=== PATIENT | male | born 1965 | race Caucasian/White ===

== ENCOUNTER 2019-09-10 14:17 | Day surgery (SDC) | payer BC, SELFPAY ==
[2019-09-10] VITALS (10 sets, daily range): BP systolic 103–137; BP diastolic 70–87; PULSE 50–82; RESP 16–19; TEMP 36.1–36.7; O2SAT 95–100; BMI 25.0
--- NOTE | 2019-09-10 14:28 | XRR_ITS ---
PROCEDURE INFORMATION: Exam: XR Chest, 1 View Exam date and time: 09/10/2019 2:29 PM Age: 54 years old Clinical indication: Mass, lump, or swelling in the chest; Patient HX: C/O possible piece of food stuck in throat; Additional info: Fb throat TECHNIQUE: Imaging protocol: XR of the chest Views: Frontal portable upright view of the chest. COMPARISON: No relevant prior studies available. FINDINGS: Lungs: The lungs are clear bilaterally. The pulmonary vasculature is normal. Pleural space: No pleural effusion. No pneumothorax. Heart/Mediastinum: The heart is normal in size and contour. No chest radiographic evidence of esophageal obstruction. Bones/joints: No acute chest wall abnormality identified. No radiopaque or radiolucent foreign body identified. Soft tissues: XR/XR chest 1V portable [id number] IMPRESSION: 1. No acute cardiopulmonary abnormality identified. 2. No radiopaque or radiolucent foreign body identified. 3. No chest radiographic evidence of esophageal obstruction.
--- NOTE | 2019-09-10 14:35 | ED_ITS ---
HPI - Abdominal Pain General: Chief Complaint: Airway/Esophagus Foreign Body Stated Complaint: fb in throat Time Seen by Provider: 09/10/19 14:25 Source: patient and family Mode of arrival: ambulatory Limitations: no limitations History of Present Illness: HPI narrative: Mr. Yuan is a nice 54-year-old male who comes in complaining of having a piece of pork stuck in his throat. Patient states that he has had this happen to him before and they have had to go in with a scope to push the piece of food on through. He gets sick and throws up after so much of his secretions buildup in his esophagus. He is unaware of any webs or other cause for his difficulty swallowing. Patient states his symptoms have been like this for the past 2 hours. Associated Symptoms: Denies chills, coffee ground emesis, constipation, GI cramping, diarrhea, dysuria, fever(s), heartburn, hematochezia, hematuria, hematemesis, melena, nausea, syncope and vomiting Review of Systems Const: Denies: fever(s), chills, body aches, fatigue, malaise or diaphoresis Eyes: Denies: change in vision, blurry vision, blind spots, photophobia, eye discharge or eye redness ENMT: Denies: throat pain, odynophagia, hoarseness, swelling of lips/tongue, oral sores, ear or mastoid pain, ear discharge, change in hearing or nasal discharge Card: Reports: chest pain; Denies: palpitations, irregular heart rhythm, edema, lightheadedness, syncope, pre-syncope, dyspnea on exertion or orthopnea Resp: Denies: dyspnea, productive cough, non-productive cough, wheezing, hemoptysis or chest congestion GI: Denies: abdominal pain, nausea, vomiting, hematemesis, coffee ground emesis, heartburn, diarrhea, constipation, GI cramping, hematochezia or melena : Denies: flank pain, dysuria, urinary frequency, urinary urgency or hematuria Musc: Denies: neck pain, back pain, extremity pain, extremity swelling, joint pain, joint swelling, joint redness, joint warmth or joint stiffness Skin/Breast: Denies: rash, pruritus, erythema, skin tenderness or jaundice Neuro: Denies: headache(s), numbness in extremities, weakness in extremities, sensory changes, lack of coordination, difficulty walking, dizziness, vertigo, confusion, Slurred speech present or seizure-like activity Cooper/Lymph: Denies: easy bruising, easy bleeding, petechiae, purpura or enlarged lymph nodes All/Imm: Denies: urticaria, throat swelling, tongue swelling, facial swelling or acute wheezing Physical Exam Const: COMMON NORMALS: no acute distress, patient oriented x3, no limitations, healthy appearing and well nourished GENERAL APPEARANCE: cooperative, well kempt and well developed HENMT: COMMON NORMALS: normocephalic, atraumatic, external ears normal, EAC's normal and Normal external nose present HEAD & SCALP: normal to inspection, normocephalic and atraumatic FACE & SINUS: normal facial exam and face symmetric NOSE: Normal external nose present and Normal nares present EXTERNAL EAR: Yes external ears normal EXTERNAL AUDITORY CANAL: EAC's normal MOUTH: Normal oral and palatal mucosa present, lip normal and tongue normal Eye: COMMON NORMALS: Equal, round and reactive pupils present and conjunctivae normal GENERAL EYE: appearance normal, both eyes and all related structures ALIGNMENT: Yes alignment normal PERIORBITAL: periorbital findings normal EYELID: eyelids normal CONJUNCTIVA: Yes conjunctivae normal SCLERA: sclerae normal PUPIL: Yes Equal, round and reactive pupils present Neck/C-Spine: COMMON NORMALS: full ROM, no lymphadenopathy, supple, no meningeal signs and no JVD GENERAL: Yes normal visual inspection and Yes trachea midline Chest: COMMONS NORMALS: normal inspection of the chest and normal palpation of entire chest wall Resp: COMMON NORMALS: normal respiratory effort, No retractions and No use of accessory muscles EFFORT & INSPECTION: Yes able to speak in complete sentences and Yes symmetric chest movement AUSCULTATION: no crackles, no rales, no rhonchi and no wheezes Cardio: COMMON NORMALS: no JVD, regular rate, regular rhythm, S1 normal heart sound present and S2 normal heart sound present RATE: regular rate RHYTHM: regular rhythm HEART SOUNDS: S1 normal heart sound present, S2 normal heart sound present, no click, no gallops, no murmurs, no rubs and abnormal split S2 GI: COMMON NORMALS: Soft to palpation and No hepatosplenomegaly present PALPATION: Yes Soft to palpation, No Tenderness to palpation present (GI), No Guarding due to palpation present (GI), No Rigid due to palpation, Yes No hepatosplenomegaly present, No Hernia present, No Palpable mass present and No Pulsatile mass present : COMMON NORMALS: Yes no CVA tenderness BLADDER/KIDNEY EXAM: Yes no CVA tenderness Back/Pelvis: COMMON NORMALS: no CVA tenderness, thoracic and lumbar spine normal to inspection, no thoracic nor lumbar tenderness and thoraco-lumbar ROM normal Extremity: COMMON NORMALS: normal to inspection, full ROM, capillary refill normal, no joint enlargement, no clubbing, cyanosis or edema and no calf tenderness Neuro: COMMON NORMALS: patient oriented x3, CN's II-XII intact bilaterally, moves all extremities, no focal motor deficits and no sensory deficits noted MENINGEAL SIGNS: Yes no meningeal signs SPEECH: speech normal Psych: COMMON NORMALS: mental status grossly normal, Normal thought process present, cooperative, normal affect, speech normal and activity/motor behavior normal APPEARANCE: Yes well kempt SPEECH: Yes normal speech THOUGHT PROCESS: Normal thought process present Skin: COMMON NORMALS: no rashes or lesions noted, turgor normal, no jaundice, no petechiae and no mottling GENERAL SKIN EXAM: no rashes or lesions noted and turgor normal Procedures EJ/Peripheral Line Arm R: Time Out Performed: Yes Skin Cleansed in Sterile Fashion: Yes Size (gauge): 18 IV Secured and Dressing Applied: Yes Patient Tolerated Procedure: well Additional Comments: Ultrasound guidance utilized. Course Vital Signs: Vital signs: Vital Signs Temperature 97.3 F L 09/10/19 14:23 Pulse Rate 82 09/10/19 14:23 Respiratory Rate 18 09/10/19 14:23 Blood Pressure 122/86 09/10/19 14:23 Pulse Oximetry 96 09/10/19 14:23 MDM - Abdominal Pain MDM Narrative: Medical decision making narrative: I have exhausted medical therapy with nitroglycerin, Ativan and antiemetics. The patient tried to drink something here and vomited it back up immediately. I reviewed the case with Dr. Landry who states that he does not intervene on repeat esophageal food boluses and will need someone who can possibly dilate him. I called Dr. Fox who was gracious enough to come evaluate the patient. He is asked for the GI team to be called. Imaging Data ^: CXR: My impression: No acute cardiopulmonary findings. Discharge Plan Discharge Patient Disposition: Placed in Observation Clinical Impression: Esophageal obstruction due to food impaction Condition: Stable Coding Level of Care Code ED Forestry Conservation Worker for Chg Fwd Exam Comprehensive
[2019-09-10] MEDS: nitroglycerin 0.4 mg sublingual Tablet SUBLINGUAL ×3 (14:40→15:13)
[2019-09-10] MEDS: sodium chloride 0.9% 1,000 ML 100 ML IV (14:50)
[2019-09-10] MEDS: LORazepam 2 mg/mL INJ 1 mL 1 MG IVP (14:51)
[2019-09-10] MEDS: ondansetron 2 mg/ML SDV 2 mL 4 MG IVP (14:51)
[2019-09-10] MEDS: metoclopramide 5 mg/mL SDV 2 mL 10 MG IVP (15:12)
[2019-09-10] MEDS: nitroglycerin 1 gm/inch oint Pkt 1 INCH TOPICAL (15:28)
--- NOTE | 2019-09-10 16:10 | ANES.PREANE2 ---
Pre-Anesthetic Assessment Pre-Anesthetic Assessment: Height/Weight: Height 1.83 m Weight 83.915 kg Temp Pulse Resp BP Pulse Ox 97.3 F L 82 18 122/86 96 09/10/19 14:23 09/10/19 14:23 09/10/19 14:23 09/10/19 14:23 09/10/19 14:23 Exam: Pre-Anes Outpt Exam: alert, oriented x 3, clear to auscultation bilaterally and regular rate & rhythm Airway: Submandibular: WNL Cervical ROM: WNL MP: 2 Dentition: Other (teeth ok) History/ROS: No significant history except as noted Pulmonary: Pulmonary: None reported CV/HEM: CV/HEM: None reported : : None reported Hepatic: Hepatic: None reported GI: GI: None reported Metabolic: Comments: Gout Musc/skel: Musc/skel: None reported Neuropsych: Neuropsych: None reported Anesthetic Plan: ASA status: 2E Anesthesia: Anesthesia Evaluation and General Risk of > 500 ml blood loss (7ml/kg in children): No Meds/Allergies Current Medications: Current Medications Generic Name Dose Route Start Last Admin Trade Name Freq PRN Reason Stop Dose Admin Sodium Chloride 1,000 mls @ 100 m ls/hr 09/10/19 14:30 09/10/19 14:50 Sodium Chloride 0.9% IV 100 mls/hr .Q10H SHEFALI Administration Nitroglycerin 0.4 mg 09/10/19 14:29 09/10/19 15:13 Nitrostat SUBLINGUAL 1 tab Q5M PRN Administration CHEST PAIN Data Anesthesia Cardiac Studies: No Data to Display
--- NOTE | 2019-09-10 16:38 | P.CONIM_ITS ---
Providers/Reason For Consult Consulting Physican/Specialty*: Internal medicine/gastroenterology Reason for Consult*: Presumed meat impaction in the esophagus after eating pulled pork for lunch. Requesting Physcian: Dr. Caro in the ER Attending Physician: Nick Fox MD Primary Care Provider: Mark Hidalgo MD History of Present Illness History of Present Illness Jose Lopez is a 54 year old male who presented the emergency department after eating lunch today which consisted of pulled pork. He noticed that he immediately felt a piece of meat get hung in his lower esophagus and was then able to keep any food down thereafter. He has had this happen before and is familiar with the symptoms. He cannot tell me exactly when it was done last but he said it was years ago. He says he has had acid reflux but really is pretty asymptomatic with it. He denies any other constitutional symptoms such as early satiety dysphasia or weight loss recently, he said this was an acute event without precedence. Review of Systems General: Reports: 10 or more systems reviewed and unremarkable except in HPI and below Meds/Allergies Home Medications and Allergies Home Medications Medication Instructions Recorded Confirmed Last Taken Type allopurinol 200 mg PO DAILY 09/10/19 09/10/19 09/10/19 History cranberry 500 mg PO BID 09/10/19 09/10/19 09/10/19 History Allergies Allergy/AdvReac Type Severity Reaction Status Date / Time No Known Allergies Allergy Verified 09/10/19 14:31 Current Medications Current Medications Generic Name Dose Route Start Last Admin Trade Name Freq PRN Reason Stop Dose Admin Sodium Chloride 1,000 mls @ 100 mls/hr 09/10/19 14:30 09/10/19 14:50 Sodium Chloride 0.9% IV 100 mls/hr .Q10H SHEFALI Administration Nitroglycerin 0.4 mg 09/10/19 14:29 09/10/19 15:13 Nitrostat SUBLINGUAL 1 tab Q5M PRN Administration CHEST PAIN Vitals/I&O/Wt Last Vital Signs Temp 97.3 F L 09/10/19 14:23 Pulse 50 L 09/10/19 16:01 Resp 18 09/10/19 16:01 BP 103/70 09/10/19 16:01 Pulse Ox 97 09/10/19 16:01 Weight last 48 hrs Weight 185 lb Physical Exam Const: COMMON NORMALS: no acute distress, average body habitus, patient oriented x3, no limitations, healthy appearing, alert and well nourished OTHER: He does have to lean over now and again and expel the contents of his esophagus into a bin. Neck/C-Spine: COMMON NORMALS: no JVD Resp: COMMON NORMALS: normal respiratory effort, No retractions, No use of accessory muscles, clear to auscultation bilaterally and percussion normal AUSCULTATION: clear to auscultation bilaterally PERCUSSION: percussion normal Cardio: COMMON NORMALS: no JVD, regular rate, regular rhythm, S1 normal heart sound present, S2 normal heart sound present, No gallops present (Cardio), No clicks present (Cardio), No murmurs present (Cardio), No rub (Cardio) and Peripheral pulses 2+ throughout RATE: regular rate RHYTHM: regular rhythm HEART SOUNDS: S1 normal heart sound present and S2 normal heart sound present PERIPHERAL PULSES: Peripheral pulses 2+ throughout GI: COMMON NORMALS: Normal to inspection, nondistended, normoactive bowel sounds present, Soft to palpation, non-tender, No hepatosplenomegaly present, no masses and no bruits PALPATION: Yes Soft to palpation and Yes No hepatosplenomegaly present Neuro: COMMON NORMALS: patient oriented x3 SENSORIUM/ORIENTATION: Yes alert A&P Assessment and plan (1) Esophageal obstruction due to food impaction: Status: Acute Additional A&P Information We will submit him for EGD with removal of foreign body in the OR with an airway to prevent aspiration of said pulled pork if we have to extract it. Consult Attestations Medical Necessity Statement: There is no other recourse other than to take him to the operating room. Coding Level of Care Code Acute Supervisor Tree Trimming for Chg Fwd Exam Detailed Diagnoses Esophageal obstruction due to food impaction K22.2; T18.128A Comment Please allow my banquet captain in my office Cheryl Shelby to handle this.
== END 2019-09-10 19:25 | disposition home or self-care (01) ==
LOC: ER 14:27 → GILAB 15:33
PROVIDERS: Emergency Provider Emergency Medicine; PCP Family Medicine; Visit Provider Internal Medicine
PROC: 0DJ08ZZ Inspection of Upper Intestinal Tract, Via Natural or Artificial Opening Endoscopic (ICD-10-PCS; CPT 43235; principal; 2019-09-10 16:45)
DX: T18.128A Food in esophagus causing other injury, initial encounter (principal); K22.2 Esophageal obstruction; K44.9 Diaphragmatic hernia without obstruction or gangrene
CPT/HCPCS: 12345; 43247; 71045; 96375; 99283; J0330; J1100; J2001; J2060; J2405; J2704; J2765; J3010; J7030

== ENCOUNTER 2019-09-29 08:41 | Day surgery (SDC) | payer BC, SELFPAY ==
[2019-09-27 12:09] VITALS: BMI 23.6
[2019-09-29 08:59] VITALS: BP 113/69; PULSE 67; RESP 18; TEMP 36.3; O2SAT 99
[2019-09-29] MEDS: sodium chloride 0.9% 1,000 ML 30 ML IV (09:10)
--- NOTE | 2019-09-29 09:23 | ANES.PREANE2 ---
Pre-Anesthetic Assessment Pre-Anesthetic Assessment: Height/Weight: Height 1.83 m Weight 78.925 kg Temp Pulse Resp BP Pulse Ox 97.4 F L 67 18 113/69 99 09/29/19 08:59 09/29/19 08:59 09/29/19 08:59 09/29/19 08:59 09/29/19 08:59 Preop Diagnosis: str Proposed Procedure: Operation Date: 09/29/19 10:15 Proposed Procedures p EGD(Not Applicable) - Nick Fox MD Familial anesthetic complications: None Was Beta Silvestre taken within 24 hours: N/A Last intake: Intake Last Liquid Date 09/28/19 Last Liquid Time 22:00 Last Solid Date 09/28/19 Last Solid Time 20:00 Social: Social History: No alcohol and No tobacco Exam: Pre-Anes Outpt Exam: alert, oriented x 3, clear to auscultation bilaterally and regular rate & rhythm Airway: Cervical ROM: WNL MP: 1 Dentition: Other (missing) Pulmonary: Comments: Sore chest muscles (specific points) since his meat impaction removal Neuropsych: Neuropsych: None reported Anesthetic Plan: ASA status: 1 Anesthesia: MAC Risk of > 500 ml blood loss (7ml/kg in children): No Meds/Allergies Current Medications: Current Medications Generic Name Dose Route Start Last Admin Trade Name Anandq PRN Reason Stop Dose Admin Sodium Chloride 1,000 mls @ 30 ml s/hr 09/29/19 09:00 09/29/19 09:10 Sodium Chloride 0.9% IV 09/30/19 08:59 30 mls/hr .Q24H SHEFALI Administration PFSH Anesthesia PFSH: Family History (Updated 09/20/19 @ 13:[address]) Other Cancer Diabetes Heart disease Social History (Updated 09/20/19 @ 13:[address]) Smoking and tobacco status: former smoker Alcohol intake: current Adopted: No Marital status: Number of children: 2 service: No History of recent travel: No Current gender identity: Male Data Anesthesia Cardiac Studies: No Data to Display
--- NOTE | 2019-09-29 10:45 | W.PM.OPSUD ---
Surgery/Procedure H&P Update DATE OF PROCEDURE: September 29, 2019 DATE H&P PERFORMED: 09/29/19 PREOP DIAGNOSIS: str PLANNED PROCEDURE: Operation Date: 09/29/19 10:15 Proposed Procedures p EGD(Not Applicable) - Nick Fox MD
--- NOTE | 2019-09-29 10:46 | W.PM.OPSUD ---
Surgery/Procedure H&P Update DATE OF PROCEDURE: September 29, 2019 DATE H&P PERFORMED: 09/20/19 PREOP DIAGNOSIS: str PLANNED PROCEDURE: Operation Date: 09/29/19 10:15 Proposed Procedures p EGD(Not Applicable) - Nick Fox MD
[2019-09-29 11:00] VITALS: BP 101/74; PULSE 62; RESP 16; TEMP 36.3; O2SAT 98
[2019-09-30 08:46] LABS: H. Pylori / CLO Test Negative
== END 2019-09-29 11:18 | disposition home or self-care (01) ==
PROVIDERS: PCP Family Medicine; Visit Provider Internal Medicine
PROC: 0DJ08ZZ Inspection of Upper Intestinal Tract, Via Natural or Artificial Opening Endoscopic (ICD-10-PCS; CPT 43235; principal; 2019-09-29 10:15)
DX: Z09 Encounter for follow-up examination after completed treatment for conditions other than malignant neoplasm (principal); K29.70 Gastritis, unspecified, without bleeding; Z87.891 Personal history of nicotine dependence
CPT/HCPCS: 12345; 43239; 87077; J0171; J2704; J7030

== ENCOUNTER 2022-03-10 12:30 | Outpatient (CLI) | payer OTHER, BC, SELFPAY ==
--- NOTE | 2022-03-10 12:51 | MR_ITS ---
WS: [id number] MRI LEFT SHOULDER NONCONTRAST TECHNIQUE: Sagittal T2, coronal T1, T2 and proton density imaging. Axial gradient PDE imaging. CLINICAL INFORMATION: SHOULDER WEAKNESS COMPARISON: None. FINDINGS: Moderate degenerative arthritis AC joint with mild edema. Small amount of subacromial/subdeltoid flui d. Subacromial spurring with narrowing of the subacromial space. Impingement on the distal supraspina tus. Mild chronic thinning of the distal supraspinatus. Tendinopathy with partial intrasubstance tear involving the distal supraspinatus. No tendon retraction. Infraspinatus appears intact. Normal teres minor. Normal subscapularis. Normal biceps tendon in the b icipital groove. Advanced degenerative arthritis at the glenohumeral joint. Degenerative fraying of t he glenoid labrum. Biceps labral anchor appears intact. Visually small shoulder capsule can be seen w ith adhesive capsulitis. Recommend correlation with clinical symptoms. MR/MR shoulder LT wo con* [id number] IMPRESSION: 1. 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 Narrowing of the subacromial space. Impingement on the distal supraspinatus. 2. Partial thickness tear involving the distal supraspinatus with tendinopathy and T2 signal abnormality. No tendon retraction. 3. Rotator cuff is otherwise intact. 4. Biceps tendon appears intact within the bicipital groove. 5. Advanced degenerative narrowing at the glenohumeral articulation. 6. Biceps labral anchor appears intact. 7. Visually small shoulder capsule can be seen with adhesive capsulitis. Recom mend correlation with clinical symptoms.
== END 2022-03-10 12:31 | disposition home or self-care (01) ==
PROVIDERS: PCP Family Medicine; Visit Provider Nurse Practitioner
DX: R53.1 Weakness (principal); M19.012 Primary osteoarthritis, left shoulder; M75.102 Unspecified rotator cuff tear or rupture of left shoulder, not specified as traumatic; R60.0 Localized edema
CPT/HCPCS: 73221

== ENCOUNTER 2022-05-07 08:28 | Day surgery (SDC) | payer OTHER, SELFPAY ==
[2022-05-06 11:58] VITALS: BMI 24.4
[2022-05-07] VITALS (7 sets, daily range): BP systolic 119–153; BP diastolic 77–90; PULSE 48–78; RESP 13–18; TEMP 36.2–36.4; O2SAT 94–100
--- NOTE | 2022-05-07 09:16 | W.PM.OPSUD ---
Surgery/Procedure H&P Update DATE OF PROCEDURE: May 07, 2022 DATE H&P PERFORMED: 04/14/22 H&P UPDATE INFORMATION: I have reviewed H&P completed within last 30 days PREOP DIAGNOSIS: Left rotator cuff tear PLANNED PROCEDURE: Operation Date: 05/07/22 10:10 Proposed Procedures p artrhoscopic left rotator cuff repair/ [id number],M75.102(Left) - Servando Villarreal MD
[2022-05-07] MEDS: CELEcoxib 200 mg Capsule 400 MG PO (09:21)
[2022-05-07] MEDS: gabapentin 300 mg Capsule PO (09:21)
[2022-05-07] MEDS: acetaminophen 500 mg Tablet 1000 MG PO (09:21)
[2022-05-07] MEDS: oxyCODONE 20 mg ER (12 HR) Tablet PO (09:22)
[2022-05-07] MEDS: sodium chloride 0.9% 1,000 ML 30 ML IV (09:22)
[2022-05-07] MEDS: ceFAZolin 2,000 MG in sodium chloride 0.9% (plus) 50 ML 100 MG IV (09:44)
[2022-05-07] MEDS: EPINEPHrine 1 mg/mL INJ 2 MG XX (10:24)
--- NOTE | 2022-05-07 10:48 | P.ANESASSM_ITS ---
Pre-Anesthetic Assessment Height/Weight: Height 1.83 m Weight 81.647 kg Temp Pulse Resp BP Pulse Ox O2 Del Method 97.5 F L 78 16 131/83 97 05/07/22 08:33 05/07/22 08:33 05/07/22 08:33 05/07/22 08:33 05/07/22 08:33 05/07/22 09:02 Preop Diagnosis: Left rotator cuff tear Operation Date: 05/07/22 10:10 Proposed Procedures p artrhoscopic left rotator cuff repair/ [id number],M75.102(Left) - Servando Villarreal MD Familial anesthetic complications: none Was Beta Silvestre taken within 24 hours: N/A Was Clonidine taken within 24 hours: N/A Last intake: Intake Last Liquid Date 05/06/22 Last Liquid Time 22:00 Last Solid Date 05/06/22 Last Solid Time 19:00 Social Tobacco and No alcohol Exam alert, oriented x 3 and regular rate & rhythm Airway Submandibular: within normal limits Cervical ROM: within normal limits Mallampati: Class II Dentition: chipped Pulmonary Chronic Obstructive Pulmonary Disease GI Gastroesophageal Reflux Disease Anesthetic Plan ASA status: 2 Anesthesia: General and Regional (specify below) (left interscalene blk) Medications/Allergies Home Medications Medication Instructions Recorded Confirmed Last Taken Type allopurinol 100 mg tablet 200 mg PO DAILY 09/10/19 05/06/22 05/06/22 History cranberry 500 mg capsule 500 mg PO BID 09/10/19 05/06/22 05/06/22 History pantoprazole 40 mg tablet,delayed 40 mg PO DAILY #30 tabs 06/17/20 05/06/22 05/06/22 Rx release Allergies Allergy/AdvReac Type Severity Reaction Status Date / Time No Known Allergies Allergy Verified 05/07/22 08:53 Current Medications Generic Name Dose Route Start Last Admin Trade Name Freq PRN Reason Stop Dose Admin Acetaminophen 1,000 mg 05/07/22 08:33 05/07/22 09:21 Acetaminophen 500 Mg Tablet PO 05/07/22 08:34 1,000 mg ONCE ONE Administration Celecoxib 400 mg 05/07/22 08:33 05/07/22 09:21 Celecoxib 200 Mg Capsule PO 05/07/22 08:34 400 mg ONCE ONE Administration Gabapentin 300 mg 05/07/22 08:33 05/07/22 09:21 Gabapentin 300 Mg Capsule PO 05/07/22 08:34 300 mg ONCE ONE Administration Sodium Chloride 1,000 mls @ 30 mls/hr 05/07/22 08:45 05/07/22 09:22 Sodium Chloride 0.9% IV 05/08/22 08:44 30 mls/hr .Q24H SHEFALI Administration Cefazolin Sodium 2,000 mg/ 50 mls @ 100 mls/hr 05/07/22 08:33 05/07/22 10:14 Sodium Chloride IV 05/07/22 09:02 Infused PROGRAM/MUSIC DIRECTOR ONE Infusion Protocol Oxycodone HCl 20 mg 05/07/22 08:33 05/07/22 09:22 Oxycodone 20 Mg Er (12 Hr) Tablet PO 05/07/22 08:34 20 mg ONCE ONE Administration PFS Anesthesia Family History Other Cancer Diabetes Heart disease Social History Smoking and tobacco status: former smoker Alcohol intake: current Adopted: No Marital status: Number of children: 2 service: No History of recent travel: No Current gender identity: Male Data Anesthesia Cardiac Studies: No Data to Display
--- NOTE | 2022-05-07 10:49 | ANES.PROC ---
Anesthesia Procedures Procedure/Date: 05/07/22 Nerve Block ^: Nerve Block 1: Main Anesthesia: general anesthesia Time Out Performed: Yes Consent: requested by attending/covering physician, from patient, risks and benefits reviewed and patient agrees to proceed Nerve block location: interscalene (left) Anesthesia monitors applied: pulse oximetry, EKG, BP cuff and oxygen Nerve block position: semi sitting Anesthetic Used: ropivicaine 0.5% Amount of anesthesia used (mL): 30 Ultrasound used to: recognize landmarks and visualize and ID brachial plexus Nerve Stimulator Used?: Yes Interscalene/Femoral BLK: 2 stimuplex 22 g needle used for position and inplane approach Injection: neg aspiration of heme Patient Tolerated Procedure: well Complications: none
--- NOTE | 2022-05-07 11:33 | PM.OP ---
Operative Report Date of procedure: May 07, 2022 Pre-op diagnosis: Preop Diagnosis Left rotator cuff tear Post-op diagnosis: same Procedure done: Arthroscopic repair rotator cuff, subacromial decompression shoulder Implants: Cook and Nephew Regeneten implant, Cook and Nephew Helicoil 5.5 mm Pathology: none sent Surgeon: Servando Villarreal Anesthesia: General and Nerve Block (Interscalene) Estimated blood loss (mL): 5 Findings: The patient had a full-thickness tear approximately 1 cm diameter with bursal sided delamination involving the bursal 50% of the posterior supraspinatus involving approximately 1 cm of the posterior supraspinatus tendon Condition: stable Disposition: PACU Brief History: The patient is a 56-year-old male with a 3 to 4-month history of left shoulder pain. An MRI has revealed full-thickness tearing of his rotator cuff. 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 He was given 2 g of Ancef and a general anesthesia. He was positioned in the lateral position with his left arm in 15 pounds of traction. A timeout was performed. Posterior incision was made 2 cm inferior and medial to the posterior corner of the acromion. A scope cannula and trocar were driven into the glenohumeral joint. An anterior inflow cannula was placed anteriorly. Diagnostic portion arthroscopy was performed. The rotator cuff was then probed and a area of the what initially appeared to be fairly extensive articular sided tearing with a full-thickness component identified. The biceps tendon was pulled into the wound and found to be healthy and intact. No other labral tearing or chondromalacia was noted. The scope was then moved to the subacromial space as well as the anterior inflow portal. The bursal tear of the rotator cuff was identified and a lateral incision made to allow access of a working portal over the rotator cuff tear. Using the Cook and Nephew Werewolf probe, devitalized tendon about the rotator cuff was debrided creating a full-thickness tear perhaps a 1 cm in diameter. Additional bursal delamination involving the bursal 30% of the tendon was noted extending posteriorly over a distance of approximately 1 cm posterior. To improve vascularity for the repair small subacromial decompression was performed. The leading edge of the acromion was outlined with the Cook and Nephew Werewolf probe. A 5.5 mm acromionizer was introduced and approximately 4 mm of anterior and inferior acromion were removed. Bur was then used to debride the footprint for the supraspinatus tendon. Through a lateral stab wound a Cook and Nephew Helicoil 5.5 mm anchor was placed. A [employer] FirstPass suture passer was used to shuttle the first limb of tape through the rotator cuff tear with the suture exiting medial posterior extent of delamination. The second tape suture was placed approximately 5 mm anteriorly. Finally the suture was placed through the rotator cuff along the anterior extent of the full-thickness tear. Additionally the tape and then the simple suture were secured drawing the rotator cuff to debrided bone. To deal with dysvascular bursal delamination a biological implant was chosen. Through a lateral stab wound distal to the lateral cannula a Cook [employer] Nephew Regeneten implant was placed. It was fixed anteriorly medially and posteriorly with 2 soft tissue patricia each with good fixation laterally a central bone staple into the soft tissue patricia were placed duplicate staple was placed posteriorly is 1 stable was not felt to us seated completely. The shoulder portals were closed with 3-0 Prolene. Sterile dressings were applied. The patient was placed in a sling, extubated, and taken to recovery room in stable condition.
[2022-05-07] MEDS: ondansetron 2 mg/ML SDV 2 mL 4 MG IVP ×2 (12:37→13:31)
--- NOTE | 2022-05-07 13:47 | ECG_ITS ---
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 Measurements Intervals [place] Rate: 53 P: 40 ND: 211 QRS: 19 QRSD: 112 T: 55 QT: 463 QTc: 438 Interpretive Statements SINUS BRADYCARDIA WITH FIRST DEGREE AV BLOCK MODERATE INTRAVENTRICULAR CONDUCTION DELAY [110+ ms QRS DURATION] No previous ECG available for comparison Electronically Signed On 05-07-2022 18:04:29 ROLL SKINNER by Ej Block M.D. [id number]
--- NOTE | 2022-05-07 14:18 | PC.NURSE ---
Pt bradycardic, nauseated, states feels weak. Cardiac rhythm strip from the OR concerning for cardiac issues. Dr. Contreras notified, at bedside to visualize the patient. Ordered an EKG. EKG done, SR with 1st degree hb, BBB. Ok to DC per Dr. Contreras. I encouraged patient to follow up with primary care and possibly cardiology for workup outpatient. Pt and verbalized understanding and are ok with discharge at this time. Pt states nausea has improved and HR is currently in the 50's.
--- NOTE | 2022-05-07 17:07 | ANE.PACU2 ---
Inpatient post-anesthesia follow up: Airway intact: Yes Vital signs: Temperature 97.2 F Pulse Rate 48 Respiratory Rate 18 Blood Pressure 128/80 Pulse Oximetry 96 Oxygen Delivery Me thod Room Air Oxygen Flow Rate 6 Fraction of Inspir ed Oxygen Hydration adequate: Yes Nausea and vomiting: No Pain level: 2 Mental status: Baseline
== END 2022-05-07 14:00 | disposition home or self-care (01) ==
PROVIDERS: PCP Family Medicine; Visit Provider Orthopaedic Surgery
PROC: 0LQ24ZZ Repair Left Shoulder Tendon, Percutaneous Endoscopic Approach (ICD-10-PCS; CPT 29827; principal; 2022-05-07 09:40)
PROC: (CPT 29805; 2022-05-07 09:40)
DX: S46.012A Strain of muscle(s) and tendon(s) of the rotator cuff of left shoulder, initial encounter (principal); J44.9 Chronic obstructive pulmonary disease, unspecified; K21.9 Gastro-esophageal reflux disease without esophagitis; I44.0 Atrioventricular block, first degree; Z87.891 Personal history of nicotine dependence; X50.3XXA Overexertion from repetitive movements, initial encounter
CPT/HCPCS: 29827; 93005; C1713; J0171; J0690; J1100; J1885; J2250; J2370; J2405; J2704; J2710; J2795; J3010; J3490; J7030

== ENCOUNTER → 2023-05-20 13:38 | Outpatient (BNVA) | payer OTHER, SELFPAY | PROVIDERS: PCP Family Medicine; Visit Provider Physician Assistant | DX: Z98.890 Other specified postprocedural states (principal) | CPT/HCPCS: 73030 ==